=== PATIENT | male | born 1980 | race Caucasian/White ===

== ENCOUNTER 2017-04-30 12:14 | Emergency (ER) | payer OTHER ==
[2017-04-30 12:20] VITALS: TEMP 98.2
--- NOTE | 2017-04-30 13:04 | RAD ---
PROCEDURE: Left Foot Radiographs. HISTORY: left foot pain/ no injury COMPARISON: None. FINDINGS: BONES: No evidence acute displaced fracture nor dislocation. The osseous structures appear grossly intact. JOINTS: Mild degenerative changes 1st MTP joint. SOFT TISSUES: There also appears some mild medial soft tissue swelling the level of the 1st metatarsal. OTHER FINDINGS: None. IMPRESSION: No definitive radiographic evidence of acute displaced fracture nor dislocation. Mild degenerative changes 1st MTP joint. If symptoms persist or occult fracture suspected clinically, recommend repeat radiographs in 5-10 days as most fractures become radiographically evident in this timeframe. Mild medial soft tissue swelling.
--- NOTE | 2017-04-30 13:11 | C.PDOC ---
History Of Present Illness 37 y/o male, with no significant PMHx, presents to ED for evaluation of left great toe pain for the last 2 months. Patient states his pain started suddenly when he was walking 2 months ago. States pain is intermittent, and is worse when walking. Notes taking OTC pain medication, and gel without any improvement. Denies being seen by PMD, and states PMD office is "too far." Otherwise, patient denies any redness, swelling, warmth, injury, trauma, or fever. Patient is deaf mute, sweeper brush maker machine machine was used. Time Seen by Provider: 04/30/17 12:39 Chief Complaint (Nursing): Lower Extremity Problem/Injury History Per: Patient History/Exam Limitations: no limitations Onset/Duration Of Symptoms: Days (2 months) Current Symptoms Are (Timing): Still Present Recent travel outside of the [place]: No Additional History Per: Patient Past Medical History Reviewed: Historical Data, Nursing Documentation, Vital Signs Vital Signs: Last Vital Signs Temp 98.2 F 04/30/17 12:17 Pulse 75 04/30/17 13:18 Resp 17 04/30/17 13:18 BP 126/85 04/30/17 13:18 Pulse Ox 98 04/30/17 13:18 Family History: States: Unknown Family Hx - Social History Hx Tobacco Use: No Hx Alcohol Use: No Hx Substance Use: No - Immunization History Hx Tetanus Toxoid Vaccination: No Hx Influenza Vaccination: No Hx Pneumococcal Vaccination: No Review Of Systems Except As Marked, All Systems Reviewed And Found Negative. Constitutional: Negative for: Fever, Chills Musculoskeletal: Positive for: Foot Pain (left great toe pain) Skin: Negative for: Rash, Bruising Neurological: Negative for: Weakness, Numbness Physical Exam - Physical Exam Appears: Non-toxic, No Acute Distress Skin: Normal Color, Warm, Dry, No Ecchymosis, No Other (no erythema or warmth to left foot) Head: Atraumatic, Normacephalic Extremity: Normal ROM (FROM of left digits), Tenderness (left 1st MTP joint), Capillary Refill (< 2 sec.), No Deformity, No Swelling Extremity: Bilateral: Normal Color And Temperature, Normal ROM Pulses: Left Dorsalis Pedis: Normal, Right Dorsalis Pedis: Normal Neurological/Psych: Oriented x3, Normal Speech, Normal Cognition, Normal Motor, Normal Sensation ED Course And Treatment O2 Sat by Pulse Oximetry: 96 (on RA) Pulse Ox Interpretation: Normal - Other Rad Left foot x-ray X-Ray: Viewed By Me, Read By Radiologist Interpretation: FINDINGS: BONES: No evidence acute displaced fracture nor dislocation. The osseous structures appear grossly intact. JOINTS: Mild degenerative changes 1st MTP joint. SOFT TISSUES: There also appears some mild medial soft tissue swelling the level of the 1st metatarsal. OTHER FINDINGS: None. IMPRESSION: No definitive radiographic evidence of acute displaced fracture nor dislocation. Mild degenerative changes 1st MTP joint. If symptoms persist or occult fracture suspected clinically, recommend repeat radiographs in 5-10 days as most fractures become radiographically evident in this timeframe. Mild medial soft tissue swelling. Progress Note: Left foot x-ray ordered and reviewed. Crutches were offered but patient refused. Patient is being discharged home and is instructed to follow up with podiatry in 1-2 days. Disposition - Disposition Referrals: Stewart Batres DPM [Staff Provider] - Disposition: HOME/ ROUTINE Disposition Time: 13:10 Condition: STABLE Additional Instructions: Follow up with your PMD and [facility] . Return to ED if feel worse. Prescriptions: Ibuprofen [Motrin Tab] 600 mg PO Q8 #30 tab traMADol [Ultram] 50 mg PO Q6 #30 tab Instructions: Arthralgia (ED) Print Language: ARABIC - Clinical Impression Clinical Impression: Foot pain - PA / APPLICATIONS PROCESSOR / Resident Statement MD/DO has reviewed & agrees with the documentation as recorded. - Scribe Statement The provider has reviewed the documentation as recorded by the Cholo Gaspar All medical record entries made by the Cholo were at my direction and personally dictated by me. I have reviewed the chart and agree that the record accurately reflects my personal performance of the history, physical exam, medical decision making, and the department course for this patient. I have also personally directed, reviewed, and agree with the discharge instructions and disposition.
[2017-04-30 13:19] VITALS: BP 126/85; PULSE 75; RESP 17
[2017-04-30 15:11] VITALS: O2SAT 96
== END 2017-04-30 13:22 | disposition home or self-care (01) ==
LOC: C.ER 12:14
DX: M79.672 Pain in left foot (principal)